=== PATIENT | male | born 1940 | race Caucasian/White ===

== ENCOUNTER → 2023-02-12 10:24 | Outpatient (CLI) | payer MEDICARE, SELFPAY ==
[2023-02-12 20:05] LABS: Add Manual Diff / Slide Review NO; Basophils Absolute Auto 100 /uL (0-100); Basophils Percent Auto 1.4 % (0-2); Eosinophils Absolute Auto 200 /uL (0-450); Eosinophils Percent Auto 3.7 % (2-4); Hematocrit 41.5 % (41-53); Hemoglobin 13.9 g/dL (13.5-17.5); Lymphocytes Absolute Auto 1100 /uL (1100-4500); Lymphocytes Percent Auto 21.7 % (25-40); Mean Corpuscular HGB Conc 33.5 % (30-36); Mean Corpuscular Hemoglobin 33.1 PG (26-34); Mean Corpuscular Volume 98.7 fL (80-100); Monocytes Absolute Auto 400 /uL (0-900); Monocytes Percent Auto 7.6 % (3-14); Neutrophils Absolute Auto 3400 /uL (1500-7000); Neutrophils Percent Auto 65.6 % (50-75); Platelet Count 224 X10^3/uL (150-400); Red Blood Cell Count 4.21 X10^6/uL (4.5-5.9); Red Cell Distribution Width 13.1 % (11.6-14.8); White Blood Cell Count 5.1 X10^3/uL (4.5-11.0)
[2023-02-12 20:09] LABS: Alanine Aminotransferase 21 IU/L (<50); Albumin 3.9 g/dL (3.5-5.0); Albumin Globulin Ratio 1.3 (1.0-2.8); Alkaline Phosphatase 62 U/L (38-126); Aspartate Aminotransferase 25 IU/L (17-59); BUN Creatinine Ratio 15.5 (6-22); Bilirubin Total 0.9 mg/dL (0.2-1.3); Blood Urea Nitrogen 15 mg/dL (9-20); Calcium 9.3 mg/dL (8.4-10.2); Carbon Dioxide 23 mmol/L (22-32); Chloride 107 mmol/L (98-107); Cholesterol 156 mg/dL (140-199); Estimated Glomerular Filt Rate > 60 mL/min (>60); Glucose 102 mg/dL (80-110); HDL Cholesterol 54 mg/dL (40-60); HEMOLYSIS < 15 (0-50); LDL Cholesterol Calculated 83 mg/dL (<100); Potassium 4.6 mmol/L (3.4-5.1); Sodium 139 mmol/L (137-145); Total Protein 6.9 g/dL (6.3-8.2); Triglycerides 94 mg/dL (35-150)
[2023-02-12 20:36] LABS: TSH w/ Reflex to FT4 1.12 uIU/mL (0.47-4.68)
[2023-02-12 20:39] LABS: Prostate Specific Antigen Scrn 1.31 ng/mL (0.1-4.0)
== END ==
PROVIDERS: PCP Physician Assistant Medical; Visit Provider Physician Assistant Medical
DX: I25.10 Atherosclerotic heart disease of native coronary artery without angina pectoris (principal); Z11.2 Encounter for screening for other bacterial diseases; Z11.8 Encounter for screening for other infectious and parasitic diseases; Z12.5 Encounter for screening for malignant neoplasm of prostate
CPT/HCPCS: 80053; 80061; 84443; 85025; G0103

== ENCOUNTER → 2023-07-13 09:15 | Outpatient (CLI) | payer MEDICARE, SELFPAY ==
[2023-07-13 19:23] LABS: Add Manual Diff / Slide Review NO; Basophils Absolute Auto 0 /uL (0-100); Basophils Percent Auto 0.7 % (0-2); Eosinophils Absolute Auto 200 /uL (0-450); Eosinophils Percent Auto 3.5 % (2-4); Hemoglobin 12.7 g/dL (13.5-17.5); Lymphocytes Absolute Auto 1400 /uL (1100-4500); Lymphocytes Percent Auto 23.6 % (25-40); Mean Corpuscular HGB Conc 33.5 % (30-36); Mean Corpuscular Hemoglobin 33.2 PG (26-34); Monocytes Absolute Auto 500 /uL (0-900); Neutrophils Absolute Auto 3800 /uL (1500-7000); Neutrophils Percent Auto 63.2 % (50-75); Platelet Count 182 X10^3/uL (150-400); Red Blood Cell Count 3.84 X10^6/uL (4.5-5.9); Red Cell Distribution Width 12.9 % (11.6-14.8)
[2023-07-13 19:37] LABS: BUN Creatinine Ratio 19.1 (6-22); Blood Urea Nitrogen 21 mg/dL (9-20); Carbon Dioxide 22 mmol/L (22-32); Chloride 113 mmol/L (98-107); Cholesterol 201 mg/dL (140-199); Estimated Glomerular Filt Rate > 60 mL/min (>60); Glucose 100 mg/dL (80-110); HDL Cholesterol 42 mg/dL (40-60); HEMOLYSIS < 15 (0-50); LDL Cholesterol Calculated 139 mg/dL (<100); Potassium 4.1 mmol/L (3.4-5.1); Sodium 142 mmol/L (137-145); Triglycerides 102 mg/dL (35-150)
[2023-07-13 20:18] LABS: TSH w/ Reflex to FT4 1.18 uIU/mL (0.47-4.68)
== END ==
PROVIDERS: PCP Physician Assistant Medical; Visit Provider Family Medicine
DX: I71.20 Thoracic aortic aneurysm, without rupture, unspecified (principal); Z95.5 Presence of coronary angioplasty implant and graft; E78.2 Mixed hyperlipidemia; I10 Essential (primary) hypertension; I25.10 Atherosclerotic heart disease of native coronary artery without angina pectoris
CPT/HCPCS: 80048; 80061; 84443; 85025

== ENCOUNTER 2023-08-17 22:04 | Observation (INO) | payer MEDICARE, SELFPAY ==
[2023-08-17] VITALS (7 sets, daily range): BP systolic 135–159; BP diastolic 76–89; PULSE 55–64; RESP 20–33; O2SAT 90–98; BMI 25.0
--- NOTE | 2023-08-17 22:07 | DI.RAD.S_ITS ---
PROCEDURE: XR CHEST 1V INDICATIONS: chest pain TECHNIQUE: One view of the chest was acquired. COMPARISON: None. FINDINGS: Surgical changes and devices: None. Lungs and pleura: Lungs are clear. No pleural effusions or pneumothorax. Mediastinum: Mediastinal contours appear normal. Heart size is normal. Bones and chest wall: No suspicious bony lesions. Overlying soft tissues appear unremarkable. IMPRESSION: No acute cardiopulmonary abnormality is seen. Dictated by: Florentin Quach M.D. on 08/17/2023 at 22:29 Approved by: Florentin Quach M.D. on 08/17/2023 at 22:30
--- NOTE | 2023-08-17 22:14 | ED.CHESTPAIN ---
HPI - Chest Pain General Chief Complaint: Chest Pain Stated Complaint: Chest Pain, NitroX3 no relief Time Seen by Provider: 08/17/23 22:07 History of Present Illness HPI narrative: 83-year-old male with history of coronary disease, hyperlipidemia, hypertension, reported history of thoracic aneurysm presents by private vehicle from home for left-sided chest ?aching?. Patient states the pain has been intermittent for the last month but usually goes away if he takes a sublingual nitro. Today the pain persisted despite taking 3 different nitroglycerin tablets, so he decided to present for evaluation. Last stent placed 2 years ago at [facility]. Related Data Home Medications Medication Instructions Recorded Confirmed metoprolol succinate 50 mg 50 mg PO DAILY 01/30/23 06/29/23 tablet,extended release 24 hr Previous Rx's Medication Instructions Recorded nitroglycerin 0.4 mg sublingual 0.4 mg sublingual Q5-15M PRN chest 01/30/23 tablet (Nitrostat) pain #90 tabs evolocumab 420 mg/3.5 mL 420 mg (3.5 mL) SUBCUT MONTHLY 06/29/23 subcutaneous wearable injector #3.5 mL (Repatha Pushtronex) amlodipine 10 mg tablet 10 mg PO DAILY #90 tabs 07/08/23 benazepril 40 mg tablet 40 mg PO BID #180 tabs 07/21/23 isosorbide mononitrate 60 mg 60 mg PO DAILY #90 tabs 08/05/23 tablet,extended release 24 hr pantoprazole 40 mg tablet,delayed 40 mg PO DAILY #90 tabs 08/05/23 release Allergies Allergy/AdvReac Type Severity Reaction Status Date / Time Penicillins Allergy Intermediate Verified 02/24/23 11:47 Review of Systems Review of Systems Narrative: See HPI Patient History Medical History Osteoarthritis Mumps Measles Chicken pox Kidney stones Surgical History Anesthesia History of cataract removal with insertion of prosthetic lens (~2002) History of hernia repair (~2021) Family History Father History of heart disease Stroke Mother History of heart disease Brother History of heart disease Sister Cancer Sister Breast cancer Grandfather History of heart disease Grandmother Cancer Grandfather History of heart disease Social History Smoking Status: Former smoker (Quit around 2002 ) Smoking Status: Former smoker (Quit around 2002 ) Exam Narrative Exam Narrative: Const: Awake, alert, no acute distress, nontoxic appearing Cardiac: regular rate, regular rhythm RESP: unlabored, clear bilaterally, no wheezing GI: Soft, nontender, nondistended, no rebound, no guarding MSK: Atraumatic, full range of motion, pulses equal Skin: Warm, Dry, intact, no rashes Neuro: AO x3, CN II-XII grossly intact, moves all extremities Initial Vital Signs Initial Vital Signs: Vital Signs Pulse Oximetry 90 L 08/17/23 22:09 Course Orders Ordered: ED Orders 08/17/23 22:07 XR chest 1V Stat EKG-12 Lead Stat 08/17/23 22:15 Complete Blood Count AUTO DIFF Stat Comprehensive Metabolic Panel Stat Lipase Stat NT-proBNP (BNP-Adult 18+) Stat PTT Partial Thromboplastin Zach Stat Prothrombin Time INR Stat Troponin & CK Cardiac Panel Stat Sodium Chloride (Normal Saline 0.9%) 1,000 mls @ 150 mls/hr IV CONT MELBA Last Admin: 08/17/23 22:29 Dose: 150 mls/hr Documented By: CORY Discontinued Medications Aspirin (Aspirin 81 Mg Chew Tab) 324 mg PO NOW ONE Stop: 08/17/23 22:08 Last Admin: 08/17/23 22:28 Dose: 324 mg Documented By: CORY Morphine Sulfate (Morphine 4 Mg/Ml Inj) 4 mg IV NOW ONE Stop: 08/17/23 22:08 Last Admin: 08/17/23 22:29 Dose: Not Given Documented By: CORY Morphine Sulfate (Morphine 4 Mg/Ml Inj) 4 mg IV NOW ONE Stop: 08/18/23 00:22 Last Admin: 08/18/23 00:22 Dose: 4 mg Documented By: CORY Vital Signs Vital signs: Vital Signs - 8 hr 08/17/23 22:09 08/17/23 22:11 08/17/23 22:11 Pulse Rate 64 Respiratory Rate 20 Blood Pressure 159/89 H 159/89 H Pulse Oximetry 90 L 98 Oxygen Delivery Method Room Air 08/17/23 22:11 08/17/23 22:30 08/17/23 22:31 Pulse Rate 63 59 L Respiratory Rate 33 H Blood Pressure 146/80 H Pulse Oximetry 97 98 Oxygen Delivery Method 08/17/23 22:31 08/17/23 23:00 08/17/23 23:00 Pulse Rate 58 L 56 L Respiratory Rate 29 H 29 H Blood Pressure 137/76 Pulse Oximetry 98 97 Oxygen Delivery Method 08/17/23 23:30 08/17/23 23:30 08/17/23 23:32 Pulse Rate 55 L Respiratory Rate 23 Blood Pressure 135/77 142/81 H Pulse Oximetry 97 Oxygen Delivery Method 08/17/23 23:32 Pulse Rate 58 L Respiratory Rate 29 H Blood Pressure Pulse Oximetry 98 Oxygen Delivery Method MDM - Chest Pain Differential Diagnosis Differential diagnosis: Likely fracture of rib, pneumothorax and stable angina Lab Data 08/17/23 22:15 08/17/23 22:15 Labs: Lab Results 08/17/23 Range/Units 22:15 WBC 7.9 (4.5-11.0) X10^3/uL RBC 4.21 L (4.5-5.9) X10^6/uL Hgb 13.9 (13.5-17.5) g/dL Hct 41.1 (41-53) % MCV 97.7 (80-100) fL MCH 33.0 (26-34) PG MCHC 33.8 (30-36) % RDW 13.8 (11.6-14.8) % Plt Count 248 (150-400) X10^3/uL Neut % (Auto) 62.3 (50-75) % Lymph % (Auto) 25.4 (25-40) % [place] % (Auto) 8.5 (3-14) % Eos % (Auto) 2.0 (2-4) % Baso % (Auto) 1.8 (0-2) % Neut # (Auto) 4900 (1494-0170) /uL Lymph # (Auto) 2000 (4090-0953) /uL [place] # (Auto) 700 (0-900) /uL Eos # (Auto) 200 (0-450) /uL Baso # (Auto) 100 (0-100) /uL PT 12.1 (9.4-12.5) SECONDS INR 1.1 (0.9-1.3) APTT 33 (25.1-36.5) SECONDS Sodium 141 (137-145) mmol/L Potassium 3.6 (3.4-5.1) mmol/L Chloride 110 H (98-107) mmol/L Carbon Dioxide 21 L (22-32) mmol/L BUN 19 (9-20) mg/dL Creatinine 0.91 (0.66-1.25) mg/dL Estimated GFR > 60 (>60) mL/min BUN/Creatinine Ratio 20.9 (6-22) Glucose 99 (80-110) mg/dL Calcium 9.1 (8.4-10.2) mg/dL Total Bilirubin 0.7 (0.2-1.3) mg/dL AST 28 (17-59) IU/L ALT 25 (<50) IU/L Alkaline Phosphatase 73 (38-126) U/L Total Creatine Kinase 109 (55-170) U/L Troponin I < 0.012 (0.01-0.034) ng/mL NT-Pro-B Natriuret Pep 1210 H (<450) pg/mL Total Protein 8.1 (6.3-8.2) g/dL Albumin 4.7 (3.5-5.0) g/dL Globulin 3.4 (1.7-4.1) g/dL Albumin/Globulin Ratio 1.4 (1.0-2.8) Lipase 200 (23-300) U/L Imaging Data Chest x-ray: Radiologist's Impression: PROCEDURE: XR CHEST 1V INDICATIONS: chest pain TECHNIQUE: One view of the chest was acquired. COMPARISON: None. FINDINGS: Surgical changes and devices: None. Lungs and pleura: Lungs are clear. No pleural effusions or pneumothorax. Mediastinum: Mediastinal contours appear normal. Heart size is normal. Bones and chest wall: No suspicious bony lesions. Overlying soft tissues appear unremarkable. IMPRESSION: No acute cardiopulmonary abnormality is seen. Dictated by: Florentin Quach M.D. on 08/17/2023 at 22:29 Approved by: Florentin Quach M.D. on 08/17/2023 at 22:30 ECG Data Interpretation: Sinus bradycardia at 58 beats per minute. First-degree AV block, left bundle-branch block, negative Sgarbossa criteria MDM Narrative Medical decision making narrative: Chest pain in patient with coronary disease, previously intermittent but now seems to be constant despite taking nitroglycerin. Patient states his pain is currently a 1/10. Not reproducible to palpation. EKG sinus bradycardia with left bundle branch block, there are no priors for comparison. No Sgarbossa criteria met. Labs and chest x-ray ordered. Laboratory work reviewed, WBC count 7.9, hemoglobin 13.9, platelets 248, sodium 141, potassium 3.6, creatinine 0.91, troponin undetectable, normal liver enzymes. BNP 1210. Chest x-ray negative for acute abnormalities. Patient states he was not had an echocardiogram or stress test in ?years?. Since this would technically qualify as unstable angina plan to admit patient for observation and further treatment. Discharge Plan Departure Patient Disposition: Home Clinical Impression: Chest pain Admit Date/Time: 08/17/23 23:59 Admit Provider: Best Mayberry
[2023-08-17] MEDS: ASPIRIN 81 MG CHEW TAB 324 MG PO (22:28)
[2023-08-17] MEDS: SODIUM CHLORIDE 0.9% 1,000 ML 150 ML IV (22:29)
[2023-08-17 22:53] LABS: Add Manual Diff / Slide Review NO; Basophils Absolute Auto 100 /uL (0-100); Basophils Percent Auto 1.8 % (0-2); Eosinophils Absolute Auto 200 /uL (0-450); Hematocrit 41.1 % (41-53); Hemoglobin 13.9 g/dL (13.5-17.5); Lymphocytes Absolute Auto 2000 /uL (1100-4500); Lymphocytes Percent Auto 25.4 % (25-40); Mean Corpuscular HGB Conc 33.8 % (30-36); Mean Corpuscular Volume 97.7 fL (80-100); Monocytes Absolute Auto 700 /uL (0-900); Monocytes Percent Auto 8.5 % (3-14); Neutrophils Absolute Auto 4900 /uL (1500-7000); Neutrophils Percent Auto 62.3 % (50-75); Platelet Count 248 X10^3/uL (150-400); Red Blood Cell Count 4.21 X10^6/uL (4.5-5.9); Red Cell Distribution Width 13.8 % (11.6-14.8); White Blood Cell Count 7.9 X10^3/uL (4.5-11.0)
[2023-08-17 22:56] LABS: INR 1.1 (0.9-1.3); Prothrombin Time 12.1 SECONDS (9.4-12.5)
[2023-08-17 22:59] LABS: PTT Partial Thromboplastin Tim 33 SECONDS (25.1-36.5)
[2023-08-17 23:05] LABS: Alanine Aminotransferase 25 IU/L (<50); Albumin 4.7 g/dL (3.5-5.0); Albumin Globulin Ratio 1.4 (1.0-2.8); Alkaline Phosphatase 73 U/L (38-126); Aspartate Aminotransferase 28 IU/L (17-59); BUN Creatinine Ratio 20.9 (6-22); Bilirubin Total 0.7 mg/dL (0.2-1.3); Blood Urea Nitrogen 19 mg/dL (9-20); Calcium 9.1 mg/dL (8.4-10.2); Carbon Dioxide 21 mmol/L (22-32); Chloride 110 mmol/L (98-107); Creatine Kinase 109 U/L (55-170); Estimated Glomerular Filt Rate > 60 mL/min (>60); Globulin 3.4 g/dL (1.7-4.1); Glucose 99 mg/dL (80-110); HEMOLYSIS < 15 (0-50); Lipase 200 U/L (23-300); Potassium 3.6 mmol/L (3.4-5.1); Sodium 141 mmol/L (137-145); Total Protein 8.1 g/dL (6.3-8.2)
[2023-08-17 23:16] LABS: NT-proBNP (BNP-Adult 18+) 1210 pg/mL (<450); Troponin I < 0.012 ng/mL (0.01-0.034)
[2023-08-18] VITALS (12 sets, daily range): BP systolic 97–134; BP diastolic 57–88; PULSE 57–63; RESP 16–27; TEMP 36.2–37.2; O2SAT 96–98; BMI 25.0
[2023-08-18] MEDS: MORPHINE 4 MG/ML INJ IV (00:22)
--- NOTE | 2023-08-18 03:01 | DI.ECHO.S_ITS ---
[facility] : : [address] : [address] : : [id number] : : Phone: [phone] Echocardiogram Report + + :Name: AMOS RODRIGES Study Date: 08/18/2023 Height: 66 in : :[facility] ReadingLocation: Weight: 155 lb: : Gender: Male BSA: 1.8 m2 : :: 1940 Age: 83 yrs : :Reason For Study: CHEST PAIN, AORTIC ANEURYSM : :Ordering Physician: ASHLEY, : :ALESSANDRA Boo MD Performed By: Anali Faye : :Referring: ALESSANDRA BANSAL MD : + + Interpretation Summary Left ventricular size is at the upper limits of normal. Left ventricular ejection fraction is estimated to be 35%. There is dyskinesis along the septum and severe hypokinesis along the inferior wall with the rest of LV segments being mild to moderately hypokinetic. Diastolic parameters suggest probable normal left ventricular diastolic function and normal filling pressures. The right ventricle is normal in size and function. Right ventricular systolic pressure is estimated to be 27 mmHg plus the clinically estimated CVP which cannot be estimated on this exam. The left atrium is moderately dilated. There is mild to moderate mitral regurgitation. There is moderate to severely reduced leaflet mobility. There is moderate aortic stenosis. The peak aortic velocity is 3.2 m/sec. The calculated aortic valve area is 1.1 cm2. There is mild to moderate aortic regurgitation. The ascending aorta is severely enlarged. Procedure: A two-dimensional transthoracic echocardiogram with color flow and Doppler was performed. The study quality was technically adequate. There is no prior echocardiogram noted for this patient. The patient was in sinus bradycardia with heart rates between 53-59 bpm during the exam. Left Ventricle: Left ventricular size is at the upper limits of normal. There is normal left ventricular wall thickness. Left ventricular ejection fraction is estimated to be 35%. There is dyskinesis along the septum and severe hypokinesis along the inferior wall with the rest of LV segments being mild to moderately hypokinetic. Diastolic parameters suggest probable normal left ventricular diastolic function and normal filling pressures. Right Ventricle: The right ventricle is normal in size and function. Atria: The left atrium is moderately dilated. Right atrial size is normal. There is no Doppler evidence for an interatrial shunt. Mitral Valve: The mitral valve leaflets appear moderately thickened, but open well. There is mild to moderate mitral regurgitation. Aortic Valve: The aortic valve is moderately calcified. There is moderate to severely reduced leaflet mobility. There is moderate aortic stenosis. The peak aortic velocity is 3.2 m/sec. The aortic valve mean gradient is 25 mmHg. The calculated aortic valve area is 1.1 cm2. There is mild to moderate aortic regurgitation. Tricuspid Valve: The tricuspid valve is normal in structure and function. There is mild tricuspid regurgitation. Right ventricular systolic pressure is estimated to be 27 mmHg plus the clinically estimated CVP which cannot be estimated on this exam. Pulmonic Valve: The pulmonic valve leaflets are thin and pliable; valve motion is normal. There is trace pulmonic regurgitation. Great Vessels: The aortic root is normal size. The ascending aorta is severely enlarged. The inferior vena cava was not visualized. Pericardium/ Pleura There is no pericardial effusion. There is no pleural effusion. MMode/2D Measurements & Calculations LVIDd: 5.6 cm LVOT diam: 2.2 cm LVIDs: 4.9 cm Ao root diam: 3.8 cm FS: 12.7 % asc Aorta Diam: 4.9 cm EPSS: 2.3 cm IVSd: 1.0 cm LVPWd: 0.94 cm LV schilling. diameter/BSA (cm/m^2): 3.1 LV sys. diameter/BSA (cm/m^2): 2.7 LA A2 area: 26.8 cm2 RA long axis: 4.9 cm LA A4 area: 19.1 cm2 RA area: 17.5 cm2 LA length (vol): 5.2 cm RA vol: 52.7 ml LA vol: 83.9 ml RA : 29.3 ml/m2 LA vol index: 46.8 ml/m2 RVD1 (basal): 3.2 cm RVD2 (mid): 3.2 cm TAPSE: 1.7 cm Doppler Measurements & Calculations Ao V2 max: 316.8 cm/sec LVOT Max Zak: 91.4 cm/sec Ao V2 mean: 225.3 cm/sec LV V1 max P.3 mmHg Ao max P.6 mmHg LV V1 VTI: 19.6 cm Ao mean P.6 mmHg ISA(I,D): 1.1 cm2 Ao V2 VTI: 69.6 cm ISA(V,D): 1.1 cm2 sev ratio: 0.28 ISA indexed to BSA (cm^2/m^2): 0.62 MV E max zak: 77.4 cm/sec TR max zak: 260.3 cm/sec MV A max zak: 74.9 cm/sec TR max P.1 mmHg MV E/A: 1.0 PA V2 max: 95.2 cm/sec Med Peak E' Zak: 3.9 cm/sec PA V2 mean: 72.0 cm/sec E/E' med: 19.6 PA mean P.2 mmHg Lat Peak E' Zak: 13.3 cm/sec PA pr(Accel): 41.3 mmHg E/E' lat: 5.8 E/e' average: 12.7 MV dec time: 0.22 sec MR ERO: 0.12 cm2 MR PISA: 2.3 cm2 SV(LVOT): 77.5 ml MR flow rate: 74.2 cm3/sec MR PISA radius: 0.60 cm Reading Physician:11:54 AM
--- NOTE | 2023-08-18 03:13 | P.HP_ITS ---
History of Present Illness History of Present Illness Date Patient Seen: 08/18/23 Time Patient Seen: 03:13 Chief complaint: Chest Pain, NitroX3 no relief Narrative: The pt is a 83 yo who presents to the ER tonight due to chest pain that has been present for the past 2 month in an increasing frequency pattern to the point he is getting these brief episodes several times a day, lasting 15 minutes to seconds, located in the left side of the sternum, achy, not associated with exertion and can happen at rest or while asleep. The pain does not radiate to arms or neck/ jaw, rated a 5 out of 10, relieved by SL NTG. He reports that he has had 5 previous stents in the past with the most recent in 2021 ( also has a aortic aneurysm he states), He has not seen a it intern since 2021, which was at [facility] in [place], [place]. [facility] Medical History Osteoarthritis Mumps Measles Chicken pox Kidney stones Surgical History Anesthesia History of cataract removal with insertion of prosthetic lens (~2002) History of hernia repair (~2021) Family History Father History of heart disease Stroke Mother History of heart disease Brother History of heart disease Sister Cancer Sister Breast cancer Grandfather History of heart disease Grandmother Cancer Grandfather History of heart disease Social History household members: children Smoking Status: Former smoker Meds Home Medications and Allergies Home Medications Medication Instructions Recorded Confirmed Type metoprolol succinate 50 mg 50 mg PO DAILY 01/30/23 08/18/23 History tablet,extended release 24 hr nitroglycerin 0.4 mg sublingual 0.4 mg sublingual Q5-15M PRN chest 01/30/23 08/18/23 Rx tablet (Nitrostat) pain #90 tabs evolocumab 420 mg/3.5 mL 420 mg (3.5 mL) SUBCUT MONTHLY 06/29/23 08/18/23 Rx subcutaneous wearable injector #3.5 mL (Repatha Pushtronex) amlodipine 10 mg tablet 10 mg PO DAILY #90 tabs 07/08/23 08/18/23 Rx isosorbide mononitrate 60 mg 60 mg PO DAILY #90 tabs 08/05/23 08/18/23 Rx tablet,extended release 24 hr pantoprazole 40 mg tablet,delayed 40 mg PO DAILY #90 tabs 08/05/23 08/18/23 Rx release benazepril 40 mg tablet 80 mg PO DAILY 08/18/23 08/18/23 History Allergies Allergy/AdvReac Type Severity Reaction Status Date / Time Penicillins Allergy Intermediate Verified 02/24/23 11:47 Exam Vital Signs (past 8 hours): - 08/17/23 22:09 08/17/23 22:11 08/17/23 22:11 Temperature Pulse Rate 64 Respiratory Rate 20 Blood Pressure 159/89 H 159/89 H Pulse Oximetry 90 L 98 Oxygen Delivery Method Room Air Oxygen Flow Rate 08/17/23 22:11 08/17/23 22:30 08/17/23 22:31 Temperature Pulse Rate 63 59 L Respiratory Rate 33 H Blood Pressure 146/80 H Pulse Oximetry 97 98 Oxygen Delivery Method Oxygen Flow Rate 08/17/23 22:31 08/17/23 23:00 08/17/23 23:00 Temperature Pulse Rate 58 L 56 L Respiratory Rate 29 H 29 H Blood Pressure 137/76 Pulse Oximetry 98 97 Oxygen Delivery Method Oxygen Flow Rate 08/17/23 23:30 08/17/23 23:30 08/17/23 23:32 Temperature Pulse Rate 55 L Respiratory Rate 23 Blood Pressure 135/77 142/81 H Pulse Oximetry 97 Oxygen Delivery Method Oxygen Flow Rate 08/17/23 23:32 08/18/23 00:00 08/18/23 00:00 Temperature Pulse Rate 58 L 58 L Respiratory Rate 29 H 27 H Blood Pressure 134/78 Pulse Oximetry 98 98 Oxygen Delivery Method Oxygen Flow Rate 08/18/23 01:40 08/18/23 01:52 Temperature 98.0 F 98.0 F Pulse Rate 57 L 57 L Respiratory Rate 16 16 Blood Pressure 127/72 127/71 Pulse Oximetry 96 96 Oxygen Delivery Method Oxygen Flow Rate 0 0 Oxygen Delivery Method Room Air Oxygen Flow Rate 0 Const General: cooperative, healthy appearing and comfortable Resp Auscultation: clear to auscultation bilaterally Cardio Rate: regular rate Rhythm: regular rhythm Heart Sounds: murmur Extrem General: normal to inspection and no clubbing, cyanosis or edema Objective Labs 08/17/23 22:15 08/17/23 22:15 Labs: Laboratory Results - last 24 hr 08/17/23 22:15 WBC 7.9 RBC 4.21 L Hgb 13.9 Hct 41.1 MCV 97.7 MCH 33.0 MCHC 33.8 RDW 13.8 Plt Count 248 Neut % (Auto) 62.3 Lymph % (Auto) 25.4 [place] % (Auto) 8.5 Eos % (Auto) 2.0 Baso % (Auto) 1.8 Neut # (Auto) 4900 Lymph # (Auto) 2000 [place] # (Auto) 700 Eos # (Auto) 200 Baso # (Auto) 100 PT 12.1 INR 1.1 APTT 33 Sodium 141 Potassium 3.6 Chloride 110 H Carbon Dioxide 21 L BUN 19 Creatinine 0.91 Estimated GFR > 60 BUN/Creatinine Ratio 20.9 Glucose 99 Calcium 9.1 Total Bilirubin 0.7 AST 28 ALT 25 Alkaline Phosphatase 73 Total Creatine Kinase 109 Troponin I < 0.012 NT-Pro-B Natriuret Pep 1210 H Total Protein 8.1 Albumin 4.7 Globulin 3.4 Albumin/Globulin Ratio 1.4 Lipase 200 Assessment & Plan Assessment and plan (1) Chest pain: Status: Acute (2) Thoracic aortic aneurysm: Qualifiers: Thoracic aorta location: ascending aorta Presence of rupture: without rupture Qualified Code(s): I71.21 - Aneurysm of the ascending aorta, without rupture Status: Acute (3) History of coronary angioplasty with insertion of stent: Problem details: 5 total stents Status: Acute (4) Hyperlipidemia, mixed: Status: Acute (5) Hypertension, essential: Status: Acute Plan I spoke with the ER provider regarding the symptoms and lab values, and agree with the decision for admission. His labs were reviewed and BMP & CBC were within normal limits. EKG shows no acute changes and reviewed by myself as well as a CXR. I discussed the pt's home meds with him and have ordered them. Will proceed with an echo and stress test in the AM since the pt's initial troponin was negative.
[2023-08-18 07:01] LABS: Troponin I 0.015 ng/mL (0.01-0.034)
--- NOTE | 2023-08-18 07:16 | P.HP_ITS ---
History of Present Illness History of Present Illness Chief complaint: Chest Pain, NitroX3 no relief Narrative: From night doctor: The pt is a 83 yo who presents to the ER tonight due to chest pain that has been present for the past 2 month in an increasing frequency pattern to the point he is getting these brief episodes several times a day, lasting 15 minutes to seconds, located in the left side of the sternum, achy, not associated with exertion and can happen at rest or while asleep. The pain does not radiate to arms or neck/ jaw, rated a 5 out of 10, relieved by SL NTG. He reports that he has had 5 previous stents in the past with the most recent in 2021 ( also has a aortic aneurysm he states), He has not seen a plastics supervisor since 2021, which was at [facility] in [place], [place]. Additional information: He details no understanding of a previous heart attack. He did have stents placed on several occasions and [place]. He also has an aneurysm in his aorta. His other episodes leading up to PCI included exertional dyspnea and chest pain. Recently he has not had a clear cut crescendo pattern in exertional symptoms. He did have an 8, the anterior and posterior chest which is described as different from his other pre PCI symptoms. He denies any reflux has been. He did not have chest pain with his chemical stress test today. He denies leg edema, or orthopnea. No recent URI symptoms including rhinorrhea, sore throat or cough. [facility] Medical History Osteoarthritis Mumps Measles Chicken pox Kidney stones Surgical History Anesthesia History of cataract removal with insertion of prosthetic lens (~2002) History of hernia repair (~2021) Family History Father History of heart disease Stroke Mother History of heart disease Brother History of heart disease Sister Cancer Sister Breast cancer Grandfather History of heart disease Grandmother Cancer Grandfather History of heart disease Social History household members: children Smoking Status: Former smoker Meds Home Medications and Allergies Home Medications Medication Instructions Recorded Confirmed Type metoprolol succinate 50 mg 50 mg PO DAILY 01/30/23 08/18/23 History tablet,extended release 24 hr nitroglycerin 0.4 mg sublingual 0.4 mg sublingual Q5-15M PRN chest 01/30/23 08/18/23 Rx tablet (Nitrostat) pain #90 tabs evolocumab 420 mg/3.5 mL 420 mg (3.5 mL) SUBCUT MONTHLY 06/29/23 08/18/23 Rx subcutaneous wearable injector #3.5 mL (Repatha Pushtronex) amlodipine 10 mg tablet 10 mg PO DAILY #90 tabs 07/08/23 08/18/23 Rx isosorbide mononitrate 60 mg 60 mg PO DAILY #90 tabs 08/05/23 08/18/23 Rx tablet,extended release 24 hr pantoprazole 40 mg tablet,delayed 40 mg PO DAILY #90 tabs 08/05/23 08/18/23 Rx release aspirin 81 mg tablet,delayed 81 mg PO DAILY 08/18/23 08/18/23 History release benazepril 40 mg tablet 80 mg PO DAILY 08/18/23 08/18/23 History Allergies Allergy/AdvReac Type Severity Reaction Status Date / Time Penicillins Allergy Intermediate Verified 02/24/23 11:47 Review of Systems Review of Systems Narrative: All else reviewed and otherwise unremarkable except as noted in the history and physical. Exam Vital Signs (past 8 hours): - 08/17/23 23:30 08/17/23 23:30 08/17/23 23:32 Temperature Pulse Rate 55 L Respiratory Rate 23 Blood Pressure 135/77 142/81 H Pulse Oximetry 97 Oxygen Flow Rate 08/17/23 23:32 08/18/23 00:00 08/18/23 00:00 Temperature Pulse Rate 58 L 58 L Respiratory Rate 29 H 27 H Blood Pressure 134/78 Pulse Oximetry 98 98 Oxygen Flow Rate 08/18/23 01:40 08/18/23 01:52 08/18/23 05:34 Temperature 98.0 F 98.0 F 98.0 F Pulse Rate 57 L 57 L 59 L Respiratory Rate 16 16 16 Blood Pressure 127/72 127/71 127/76 Pulse Oximetry 96 96 97 Oxygen Flow Rate 0 0 0 Oxygen Delivery Method Room Air Oxygen Flow Rate 0 Narrative Exam Narrative: NAD, alert and oriented, fluent speech, calm. Normocephalic skull, EOMI, anicteric sclera, symmetric pupils. Oropharynx unremarkable, no droop. Neck supple, midline trachea, no adenopathy. Lungs clear, normal rate and effort. Heart regular, no murmur gallop or rub. Abdomen is soft, non distended and non tender. Extremities are free of edema. Skin is free of rash or lesions. Joints are not swollen or deformed. Judgment appears to be normal. Objective ECG Impression: NSR with acute changes. Imaging Chest x-ray: Radiologist's impression: No acute cardiopulmonary abnormality is seen. Labs 08/17/23 22:15 08/17/23 22:15 Labs: Laboratory Results - last 24 hr 08/17/23 08/18/23 22:15 06:20 WBC 7.9 RBC 4.21 L Hgb 13.9 Hct 41.1 MCV 97.7 MCH 33.0 MCHC 33.8 RDW 13.8 Plt Count 248 Neut % (Auto) 62.3 Lymph % (Auto) 25.4 [place] % (Auto) 8.5 Eos % (Auto) 2.0 Baso % (Auto) 1.8 Neut # (Auto) 4900 Lymph # (Auto) 2000 [place] # (Auto) 700 Eos # (Auto) 200 Baso # (Auto) 100 PT 12.1 INR 1.1 APTT 33 Sodium 141 Potassium 3.6 Chloride 110 H Carbon Dioxide 21 L BUN 19 Creatinine 0.91 Estimated GFR > 60 BUN/Creatinine Ratio 20.9 Glucose 99 Calcium 9.1 Total Bilirubin 0.7 AST 28 ALT 25 Alkaline Phosphatase 73 Total Creatine Kinase 109 Troponin I < 0.012 0.015 NT-Pro-B Natriuret Pep 1210 H Total Protein 8.1 Albumin 4.7 Globulin 3.4 Albumin/Globulin Ratio 1.4 Lipase 200 Assessment & Plan Assessment & Plan narrative: 1. Chest pain, present on admission and active. 2. CAD with H/O stents, present on admission and active. 3. HLD, present on admission and active. 4. HTN, present on admission and active. 5. Thoracic aortic aneurysm PLAN: -troponins negative. -ECHO and stress test today. -telemetry. Observation status, 1 midnight expectation of hospital services needed. His son is his proxy decision maker. He is full resuscitation. Time Spent With Patient Time with patient: 30 to 49 minutes with 50% spent counseling/coordinating care Quality MIPS - Admit I confirm the patient?s Advance Care Plan is present, Code status is documented, Surrogate decision maker is in patient?s record [If Yes, STOP here]: Yes MIPS - Meds 'Current medications' to include all prescriptions, [id number] products, herbals, cannabis/cannabidiol products, and vitamin/mineral/dietary (nutritional) supplements. I have utilized all available resources to obtain, update, or review the patient?s current medications. [If Yes, STOP here]: Yes
[2023-08-18] MEDS: AMLODIPINE 5 MG TABLET 10 MG PO (09:56)
[2023-08-18] MEDS: lisinopriL 20 MG TABLET 40 MG PO (09:56)
[2023-08-18] MEDS: ISOSORBIDE MONONITRATE ER 30 MG TABLET 60 MG PO (09:56)
[2023-08-18] MEDS: ENOXAPARIN 40 MG/0.4 ML SYRINGE SUBCUT (09:57)
[2023-08-18] MEDS: PANTOPRAZOLE DR 40 MG TABLET PO (09:57)
[2023-08-18 10:32] LABS: Troponin I 0.016 ng/mL (0.01-0.034)
[2023-08-18] MEDS: METOPROLOL ER 50 MG TABLET PO (14:18)
--- NOTE | 2023-08-18 16:00 | CM.DANOTE ---
Brief DCP Assessment Note Pt is an 83yo M here following chest pain/aneurysm under OBS and the care of the hospitalist team. PCP Allison Caballero Payer David NIKITA and self pay DERRICK BOAT OPERATOR reviewed EMR. Per chart review/RN report, pt lives with son [place] on [place]. Pt has a PMH of previous heart attacks/stnets at [facility]. Per hospitalist in morning rounds, echo and stress test planned for today. Per RN report, son works remotely/was staying at a hotel in [place] while pt was here. Son was eager to return to [facility] if pt was discharging today. As of 1599, no dc. DERRICK BOAT OPERATOR attempted to meet with pt x2, unable to meet with him. Plan: per chart review, anticipate home with son when medically stable. CM team will f/u if ferry pass needed. CM team will complete comprehensive DCP assessment/continue to follow closely. FATUMA Howard Discharge Planning/Care Management CM Discharge Assessment Start: 08/18/23 15:55 Freq: Status: Active Protocol: Document 08/18/23 15:55 SL (Rec: 08/18/23 15:59 SL [id number]) Discharge Planning Assessment Assigned Dog Track Kennel Manager FATUMA Wilkins DPOA/Assigned Designee Name stephanie Stevens Contact Information [phone] Advance Directives? No History Provided By Patient Prior Living Arrangements House Household Members children Discharge Plan Home Transportation Arrangement son in [place] Updated in Patient Room with No name and ext. # of Dog Track Kennel Manager Review Status In Process Please Provide Date Initial DC 08/18/23 Assessment Was Performed Next Review Type Continued Stay Review
[2023-08-18] MEDS: HEPARIN 5,000 UNIT/ML VIAL 4500 UNIT IV (16:53)
[2023-08-18] MEDS: HEPARIN DRIP 25,000 UNIT/500 ML IV.SOLN 17.16 UNIT IV (16:56)
[2023-08-18 17:10] LABS: PTT Partial Thromboplastin Tim 33 SECONDS (25.1-36.5)
--- NOTE | 2023-08-18 17:18 | PM.DS.1 ---
History of Present Illness History of Present Illness Chief complaint: Chest Pain, NitroX3 no relief Narrative: From night doctor: The pt is a 83 yo who presents to the ER tonight due to chest pain that has been present for the past 2 month in an increasing frequency pattern to the point he is getting these brief episodes several times a day, lasting 15 minutes to seconds, located in the left side of the sternum, achy, not associated with exertion and can happen at rest or while asleep. The pain does not radiate to arms or neck/ jaw, rated a 5 out of 10, relieved by SL NTG. He reports that he has had 5 previous stents in the past with the most recent in 2021 ( also has a aortic aneurysm he states), He has not seen a practice administrator since 2021, which was at [facility] in [place], [place]. Additional information: He details no understanding of a previous heart attack. He did have stents placed on several occasions and [place]. He also has an aneurysm in his aorta. His other episodes leading up to PCI included exertional dyspnea and chest pain. Recently he has not had a clear cut crescendo pattern in exertional symptoms. He did have an 8, the anterior and posterior chest which is described as different from his other pre PCI symptoms. He denies any reflux has been. He did not have chest pain with his chemical stress test today. He denies leg edema, or orthopnea. No recent URI symptoms including rhinorrhea, sore throat or cough. Discharge Providers Provider Date of admission: 08/17/23 23:59 Discharge Date: 08/18/23 Primary care physician: Allison Caballero PA-C Consults: None Discharge provider: Aniceto Vargas MD Summary Hospital Course Discharge Diagnosis: 1. Unstable angina, present on admission and active. 2. CAD with H/O stents, present on admission and active. 3. HLD, present on admission and active. 4. HTN, present on admission and active. 5. Thoracic aortic aneurysm, stable. 6. New systolic dysfunction with LV septal and inferior hypokinesis and negative troponin, present on admission and active. Hospital Course: This patient was admitted with chest pain. He underwent stress Lexiscan which indicated a completed inferior posterior infarct. He also had an echo revealing EF of 35% with septal and inferior hypokinesis. The patient had an echo approximately 1 year prior at [facility] which reveals normal EF. He had no has a known thoracic aneurysm. The patient also has moderate mitral regurgitation which appears to be somewhat new. His troponins were negative. He was discussed with Cardiology for [facility] [place]. Given the patient's presentation of chest pain, negative troponins, and dramatically different echo with a completed infarct that was felt to be prudent to transfer him to [place] on a heparin drip for invasive cardiac evaluation. He has a history of multiple stents including several in his LAD, 2 in his RCA in, and 1 in his diagonal 1. The patient was hemodynamically stable at the time of discharge and had been started on a heparin drip per the cardiac protocol. Status at Discharge Cognitive/behavioral status at discharge: oriented Functional status at discharge: independent ambulation Overall status at discharge: patient is back to baseline Time Spent with Patient Time spent: Greater than 30 minutes Exam Vital Signs (past 8 hours): - 08/18/23 09:56 08/18/23 12:00 08/18/23 14:18 Temperature 97.1 F L Pulse Rate 61 63 63 Respiratory Rate 16 Blood Pressure 122/88 131/68 131/68 Pulse Oximetry 97 Oxygen Flow Rate 0 08/18/23 15:52 Temperature 98.9 F Pulse Rate 63 Respiratory Rate 16 Blood Pressure 97/57 L Pulse Oximetry 96 Oxygen Flow Rate 0 Oxygen Delivery Method Room Air Oxygen Flow Rate 0 Narrative Exam Narrative: NAD, alert and oriented. Fluent speech. Lungs are clear, normal rate and effort. Heart is regular, no murmur gallop or rub. Abdomen is soft, non distended. Extremities are free of edema. Objective Imaging Echo: Radiologist's impression: Left ventricular size is at the upper limits of normal. Left ventricular ejection fraction is estimated to be 35%. There is dyskinesis along the septum and severe hypokinesis along the inferior wall with the rest of LV segments being mild to moderately hypokinetic. Diastolic parameters suggest probable normal left ventricular diastolic function and normal filling pressures. The right ventricle is normal in size and function. Right ventricular systolic pressure is estimated to be 27 mmHg plus the clinically estimated CVP which cannot be estimated on this exam. The left atrium is moderately dilated. There is mild to moderate mitral regurgitation. There is moderate to severely reduced leaflet mobility. There is moderate aortic stenosis. The peak aortic velocity is 3.2 m/sec. The calculated aortic valve area is 1.1 cm2. There is mild to moderate aortic regurgitation. The ascending aorta is severely enlarged. Chest x-ray: Radiologist's impression: No acute abnormality Cardiac perfusion scan: Radiologist's impression: The patient has a fixed defect in the septum and inferior portion of the heart without any obvious reversible ischemic areas. Labs 08/17/23 22:15 08/17/23 22:15 Labs: Laboratory Results - last 24 hr 08/17/23 08/18/23 08/18/23 22:15 06:20 09:50 WBC 7.9 RBC 4.21 L Hgb 13.9 Hct 41.1 MCV 97.7 MCH 33.0 MCHC 33.8 RDW 13.8 Plt Count 248 Neut % (Auto) 62.3 Lymph % (Auto) 25.4 [place] % (Auto) 8.5 Eos % (Auto) 2.0 Baso % (Auto) 1.8 Neut # (Auto) 4900 Lymph # (Auto) 2000 [place] # (Auto) 700 Eos # (Auto) 200 Baso # (Auto) 100 PT 12.1 INR 1.1 APTT 33 Sodium 141 Potassium 3.6 Chloride 110 H Carbon Dioxide 21 L BUN 19 Creatinine 0.91 Estimated GFR > 60 BUN/Creatinine Ratio 20.9 Glucose 99 Calcium 9.1 Total Bilirubin 0.7 AST 28 ALT 25 Alkaline Phosphatase 73 Total Creatine Kinase 109 Troponin I < 0.012 0.015 0.016 NT-Pro-B Natriuret Pep 1210 H Total Protein 8.1 Albumin 4.7 Globulin 3.4 Albumin/Globulin Ratio 1.4 Lipase 200 PFSH Medical History Osteoarthritis Mumps Measles Chicken pox Kidney stones Surgical History Anesthesia History of cataract removal with insertion of prosthetic lens (~2002) History of hernia repair (~2021) Family History Father History of heart disease Stroke Mother History of heart disease Brother History of heart disease Sister Cancer Sister Breast cancer Grandfather History of heart disease Grandmother Cancer Grandfather History of heart disease Social History household members: children Smoking Status: Former smoker Discharge Assessment & Plan Assessment and Plan Assessment: 1. Unstable angina, present on admission and active. 2. CAD with H/O stents, present on admission and active. 3. HLD, present on admission and active. On Repatha. 4. HTN, present on admission and active. 5. Thoracic aortic aneurysm 6. New systolic dysfunction with LV septal and inferior hypokinesis and negative troponin, present on admission and active. Plan of Treatment: Transfer to [facility] on a heparin drip, ACLS ambulance. Discussed with Cardiology and the hospitalist. The accepting hospitalist is Dr. Yannick Marin. Discharge Plan Discharge Plan Patient Disposition: [facility] Other facility: [facility] Under care of provider: Dr Marin Provider Discharge Comment: Stable for transfer via ACLS ambulance to [facility]. Discharge orders & Medications Prescriptions: No Action amlodipine 10 mg tablet 10 mg PO DAILY Qty: 90 1RF isosorbide mononitrate 60 mg tablet extended release 24 hr 60 mg PO DAILY Qty: 90 0RF pantoprazole 40 mg tablet,delayed release (DR/EC) 40 mg PO DAILY Qty: 90 0RF benazepril 40 mg tablet 80 mg PO DAILY aspirin 81 mg Tablet,Delayed Release (Dr/Ec) 81 mg PO DAILY metoprolol succinate 50 mg tablet extended release 24 hr 50 mg PO DAILY nitroglycerin [Nitrostat] 0.4 mg tablet, sublingual 0.4 mg sublingual Q5-15M PRN (Reason: chest pain) Qty: 90 3RF Rx Instructions: do not exceed 3 doses per episode Repatha Pushtronex 420 mg/3.5 mL wearable injector 420 mg SUBCUT MONTHLY Qty: 3.5 6RF Medication counseling provided by Pharmacist: No Follow up/Referrals: Allison Caballero PAJameC [Primary Care Provider] - Diet/Activity/Treatments Diet: Low-cholesterol Discharge Data Primary Care Provider: Allison Caballero Attending Provider: Best Mayberry Admit Date/Time: 08/17/23 23:59 Quality MIPS - DC The patient has a history of heart transplant or Left Ventricular Assist Device (LVAD). If yes, STOP here.: No The patient has current or prior documentation of left ventricular ejection fraction (LVEF) less than or equal to 40%, or moderate or severely depressed left ventricular systolic function.: Yes A. The patient was prescribed or already taking an Angiotensin-Converting Enzyme (IMELDA) Inhibitor, or Angiotensin Receptor Marly (ARB).: Yes B. The patient was prescribed or already taking a beta-marly. [If Yes to Both A & B, STOP here]: Yes
--- NOTE | 2023-08-18 17:56 | DI.NM.S_ITS ---
DATE OF SERVICE: 08/18/2023 PROCEDURE: Pharmacological perfusion study. INDICATIONS: Chest pain with known history of coronary artery disease with multiple PCIs, details not available. RADIOPHARMACEUTICAL: 27.5 mCi technetium-99m Myoview IV was injected at rest and 9.8 mCi technetium-99m Myoview IV was injected at rest. CARDIAC STRESS: The patient underwent IV Lexiscan perfusion study under the supervision of an attending staff using standard IV Lexiscan as per protocol. Baseline blood pressure 130/80 and heart rate 63 beats per minute. During Lexiscan, the patient remained hemodynamically stable. Baseline rhythm was sinus with left bundle-branch block. During stress, the patient had short run of atrial run as well as occasional PVCs. No new ischemic changes. No sustained ventricular tachycardia. The patient had minimal dyspnea. No chest pain. RAW DATA: There is increased subdiaphragmatic activity. GATED STUDY: Resting LV ejection fraction 47% and stress LV ejection fraction 49% with inferior wall hypokinesis. Resting end-diastolic volume 220 mL suggestive of dilated LV. TID ratio 0.94, which is within normal limits. Lung/heart ratio 0.34, which is within normal limits. MYOCARDIAL PERFUSION SCAN: Stress supine, resting supine, and stress prone images were compared to each other. There appears to be predominantly fixed, large size, severely decreased perfusion of inferior wall extending into the inferior apex, distal inferior lateral wall. Also hypokinetic distal anterior septum. No significant reversible ischemia. CONCLUSION: This is an abnormal myocardial perfusion study consistent with large-size infarction of inferior wall extending into the inferior apex, distal anterolateral wall, as well as distal anterior septum defect which could be due to left bundle-branch block. Stress left ventricular ejection fraction 49% with inferior wall hypokinesis. Dilated LV. Discussed the finding with Dr. Aniceto Vargas. Manuelito Ambriz - BREANNE/joanna/ERICKA doc#: [id number]/job#: [id number] dd: 08/18/2023 12:58:00 dt: 08/18/2023 16:44:00 DICTATING MD/COPIES TO: Edmar Lazar MD COPIES MNE: GUNNAR;
--- NOTE | 2023-08-18 18:59 | PC.NURSE ---
Patient aware of reason and plan for transfer to [place] this evening for cardiac invasive evaluation. He has heparin bolus and drip started. Next PTT due at 2300. Pt is scheduled for cotton picking machine operator by EMS at 2019 this evening. Report called to CRYSTAL Adam, at [facility]. ([id number]) phone number [phone]. Continuous monitoring.
== END 2023-08-18 20:50 | disposition short-term general hospital (02) ==
LOC: ED 22:14 → AC 08-18
PROVIDERS: Hospitalist; Admitting Provider Internal Medicine; Emergency Provider Emergency Medicine; PCP Physician Assistant Medical; Referring Provider Emergency Medicine; Visit Provider Internal Medicine
DX: I20.0 Unstable angina (principal); I10 Essential (primary) hypertension; I71.21 Aneurysm of the ascending aorta, without rupture; E78.5 Hyperlipidemia, unspecified; Z95.5 Presence of coronary angioplasty implant and graft
CPT/HCPCS: 36415; 71045; 78452; 80053; 82550; 83690; 83880; 84484; 85025; 85610; 85730; 93005; 93010; 93017; 93306; 99284; G0378; A9502; J1644; J1650; J2270; J2785